=== PATIENT | male | born 1990 | race Caucasian/White ===

== ENCOUNTER 2023-02-01 15:21 | Emergency (ER) | payer BC ==
[~2023-02-01] VITALS: Ht 188 cm; Wt 88.8 kg
[2023-02-01 15:32] VITALS: BP 126/73
[2023-02-01] MEDS ORDERED: LIDOcaine 1% W/epiNEPHrine 1:100,000 20ml vial SQ STA (15:55)
[2023-02-01] MEDS ORDERED: ibuprofen 200mg tablet PO ONE (16:30)
== END 2023-02-01 16:39 | disposition home or self-care (01) ==
LOC: ER 15:23
DX: S62.511A Displaced fracture of proximal phalanx of right thumb, initial encounter for closed fracture (principal); W18.39XA Other fall on same level, initial encounter; Y93.89 Activity, other specified; Y92.89 Other specified places as the place of occurrence of the external cause; Y99.8 Other external cause status
CPT/HCPCS: 29125; 73140; 99283; J3490; A6449